=== PATIENT | female | born 1935 | race Native Hawaiian/Other Pacific Islander ===

== ENCOUNTER 2016-10-01 15:18 | Outpatient (CLI) | payer OTHER ==
[~2016-10-01 15:18] MED LIST: AMOX875T8 PO; CADUET10 MG/10 M OR; CARV12.5 PO; ELIQUIS5 MG OR; LEVO175T OR; LISI20TA24 PO; LORCET 5-325 MG1 TAB PO; NEXIUM40 M1 PO; PACERONE200 MG OR
== END 2016-10-01 19:17 | disposition home or self-care (01) ==
LOC: LAB 15:18
DX: E11.9 Type 2 diabetes mellitus without complications (principal)
CPT/HCPCS: 83036

== ENCOUNTER 2017-06-18 12:21 | Outpatient (CLI) | payer OTHER | END 2017-06-18 21:17 | disposition home or self-care (01) | LOC: US 12:21 | DX: I82.491 Acute embolism and thrombosis of other specified deep vein of right lower extremity (principal) ==

== ENCOUNTER 2017-09-17 13:18 | Outpatient (CLI) | payer OTHER | END 2017-09-17 21:47 | disposition home or self-care (01) | LOC: US 13:18 | DX: I82.491 Acute embolism and thrombosis of other specified deep vein of right lower extremity (principal) ==

== ENCOUNTER 2019-06-03 10:08 | Outpatient (CLI) | payer OTHER | END 2019-06-03 19:13 | disposition home or self-care (01) | LOC: RAD 10:08 | DX: M17.0 Bilateral primary osteoarthritis of knee (principal) ==